=== PATIENT | female | born 1985 | race Asian ===

== ENCOUNTER 2016-09-09 10:54 | Observation (INO) | payer BC ==
[~2016-09-09] VITALS: Ht 167.6 cm; Wt 83.5 kg
[2016-09-09 11:04] VITALS: BP 121/87
== END 2016-09-09 15:30 | disposition home or self-care (01) ==
LOC: LDOP 10:54 → LDIP 13:19
PROVIDERS: ADMIT Specialist; ATTEND Specialist
DX: O36.8130 Decreased fetal movements, third trimester, not applicable or unspecified (principal); O46.93 Antepartum hemorrhage, unspecified, third trimester; Z3A.38 38 weeks gestation of pregnancy
CPT/HCPCS: 59025; 81001; G0378

== ENCOUNTER 2016-09-23 06:09 | Inpatient (IN) | payer BC ==
[~2016-09-23] VITALS: Ht 167.6 cm; Wt 84.0 kg
[2016-09-23] MEDS ORDERED: OXYTOCIN 30U/ 0.9% NaCL 500ML 500 ML IV SCH (06:10)
[2016-09-23] MEDS ORDERED: LACTATED RINGERS 1,000 ML IV SCH ×2 (06:10→06:15)
[2016-09-23 06:20] VITALS: BP 109/78
[2016-09-23] MEDS ORDERED: PREN1TAB27 PO (06:26)
[2016-09-23] MEDS ORDERED: SODIUM CITRATE/CITRIC ACID 30 ML UDC PO ONE (06:30)
[2016-09-23] MEDS ORDERED: METOCLOPRAMIDE 5 MG/ML, 2ML IV ONE (06:30)
[2016-09-23] MEDS ORDERED: LACTATED RINGERS 1,000 ML IVBOLUS ONE (06:30)
[2016-09-23 06:44] LABS: HEMOGLOBIN 14.4 g/dL (11.7-16.4)
[2016-09-23] MEDS ORDERED: NEWBORN KIT ONE (06:53)
[2016-09-23] MEDS ORDERED: OXYTOCIN 30U/ 0.9% NaCL 500ML 500 ML ONE (06:53)
[2016-09-23] MEDS ORDERED: FENTANYL PF 100 MCG/2ML ONE (07:19)
[2016-09-23] MEDS ORDERED: HYDROmorphone 2 MG/ML, 1ML ONE (07:19)
[2016-09-23] MEDS ORDERED: SODIUM CITRATE/CITRIC ACID 30 ML UDC ONE (07:36)
[2016-09-23] MEDS ORDERED: METOCLOPRAMIDE 5 MG/ML, 2ML ONE (07:36)
[2016-09-23] MEDS: LACTATED RINGERS 1,000 ML IV SCH ×3 (07:50→23:50)
[2016-09-23] MEDS ORDERED: ONDANSETRON 2MG/ML, 2ML ONE (07:55)
[2016-09-23] MEDS ORDERED: CEFAZOLIN 1,000 MG ONE (07:55)
[2016-09-23] MEDS ORDERED: EPHEDRINE 50 MG/ML, 1ML ONE (07:55)
[2016-09-23] MEDS ORDERED: ONDANSETRON 2MG/ML, 2ML IV PRN (08:00)
[2016-09-23] MEDS ORDERED: MISOPROSTOL 200 MCG TABLET PR PRN (08:00)
[2016-09-23] MEDS ORDERED: DIPH,PERTUSS(ACELL),TET VAC/PF NC IM-VACC PRN (08:00)
[2016-09-23] MEDS ORDERED: RHOGAM FROM BLOOD BANK 1 NOTE EA IM/IV ONE (08:00)
[2016-09-23] MEDS ORDERED: MEPERIDINE/PF 50 MG/ML IM PRN (08:00)
[2016-09-23] MEDS ORDERED: MEASLES,MUMPS&RUBELLA VACC/PF 0.5 ML SQ-VACC PRN (08:00)
[2016-09-23] MEDS ORDERED: KETOROLAC 30 MG/1 ML ONE (09:57)
[2016-09-23] MEDS: OXYTOCIN 30U/ 0.9% NaCL 500ML 500 ML IV SCH ×2 (10:01→17:50)
[2016-09-23] MEDS: KETOROLAC 30 MG/1 ML IV SCH ×3 (10:06→23:04)
[2016-09-23 11:30] VITALS: BP 114/57
[2016-09-23 16:30] VITALS: BP 107/66
[2016-09-23 17:53] LABS: HEMOGLOBIN 11.6 g/dL (11.7-16.4)
[2016-09-23] MEDS: OXYcodone IR 5MG TABLET PO PRN (19:53)
[2016-09-23 20:00] VITALS: BP 117/65
[2016-09-24 00:15] VITALS: BP 103/73
[2016-09-24] MEDS: OXYcodone IR 5MG TABLET PO PRN ×5 (00:15→20:26)
[2016-09-24] MEDS: OXYTOCIN 30U/ 0.9% NaCL 500ML 500 ML IV SCH (03:50)
[2016-09-24 03:56] VITALS: BP 96/58
[2016-09-24] MEDS: KETOROLAC 30 MG/1 ML IV SCH (05:00)
[2016-09-24] MEDS: IBUPROFEN 600 MG TABLET PO PRN ×3 (07:45→20:26)
[2016-09-24] MEDS: PRENATAL VIT/IRON/FA 1 EACH TABLET PO SCH ×2 (07:45→09:00)
[2016-09-24] MEDS: DOCUSATE 100 MG CAPSULE PO PRN ×2 (07:45→20:26)
[2016-09-24] MEDS: LACTATED RINGERS 1,000 ML IV SCH (07:50)
[2016-09-24 08:30] VITALS: BP 109/71
[2016-09-24 21:05] VITALS: BP 113/75
[2016-09-25] MEDS: OXYcodone IR 5MG TABLET PO PRN ×4 (00:45→13:04)
[2016-09-25] MEDS: IBUPROFEN 600 MG TABLET PO PRN ×2 (03:11→09:17)
[2016-09-25] MEDS ORDERED: OXYcodone IR 5MG TABLET ONE (05:48)
[2016-09-25 07:53] VITALS: BP 111/74
[2016-09-25] MEDS ORDERED: IBUP-1222 PO (08:43)
[2016-09-25] MEDS ORDERED: OXYC-302 PO (08:44)
[2016-09-25] MEDS: PRENATAL VIT/IRON/FA 1 EACH TABLET PO SCH (09:17)
[2016-09-25] MEDS: DOCUSATE 100 MG CAPSULE PO PRN (09:17)
== END 2016-09-25 13:44 | disposition home or self-care (01) | DRG 766 ==
LOC: LDIP 06:09 → 2NW 11:16
PROVIDERS: ADMIT Specialist; ATTEND Specialist
PROC: 10D00Z1 Extraction of Products of Conception, Low, Open Approach (ICD-10-PCS; principal; 2016-09-23)
PROC: 0UB70ZZ Excision of Bilateral Fallopian Tubes, Open Approach (ICD-10-PCS; 2016-09-23)
DX: O34.211 Maternal care for low transverse scar from previous cesarean delivery (principal); Z37.0 Single live birth; Z80.0 Family history of malignant neoplasm of digestive organs; Z82.49 Family history of ischemic heart disease and other diseases of the circulatory system; Z3A.40 40 weeks gestation of pregnancy; Z30.2 Encounter for sterilization; Z23 Encounter for immunization
CPT/HCPCS: 36415; 85025; 86850; 86900; 88302; J0690; J1170; J1885; J2175; J2405; J3010; J2590; J2765; J7120